=== PATIENT | female | born 2000 | race Asian ===

== ENCOUNTER 2023-10-11 16:57 | Inpatient (IN) ==
[2023-10-11 17:54] LABS: ABS Eosinophils 0.2 10^3/uL (0.0-0.5); ABS Lymphocytes 2.4 10^3/uL (1.0-4.8); ABS Monocytes 0.6 10^3/uL (0.0-0.9); ABS Neutrophils 4.2 10^3/uL (1.5-7.6); ABS Nucleated RBC 0.01 10^3/ul; Eosinophil % 2.2 %; Hematocrit 43.8 % (35-45); Hemoglobin 14.7 g/dL (11.5-14.3); Lymphocyte % 32.4 %; Mean Corpuscular Hemoglobin 29.4 pg (27-33); Mean Corpuscular Hgb Conc 33.5 g/dL (31-36); Mean Corpuscular Volume 87.8 fL (80-97); Mean Platelet Volume 8.7 fL (7.5-11.2); Nucleated Red Blood Cells % 0.1 %/100WBC (0.0-0.8); Platelet Count 309 10^3/uL (150-450); Red Blood Count 4.99 10^6/uL (3.63-4.92); Red Cell Distribution Width 13.7 % (12-17); White Blood Count 7.4 10^3/uL (3.8-11.8)
[2023-10-11 18:34] LABS: Urine Appearance Clear; Urine Bilirubin Negative (Negative); Urine Blood Negative (Negative); Urine Color Colorless; Urine Glucose Negative (Negative); Urine Ketones Negative (Negative); Urine Nitrite Negative (Negative); Urine Protein Negative (Negative); Urine Specific Gravity 1.009 (1.002-1.030); Urine Urobilinogen Negative (Negative)
[2023-10-11 18:53] LABS: HCG Pregnancy < 0.60 mIU/mL
[2023-10-11 18:57] LABS: ALT 17 U/L (7-52); AST 21 U/L (13-39); Albumin 4.5 g/dL (3.2-5.2); Albumin/Globulin Ratio 1.3 (1-3); Alkaline Phosphatase 62 U/L (35-149); Anion Gap 9 mmol/L (2-16); Blood Urea Nitrogen 9 mg/dL (6-24); C Reactive Protein 1.84 mg/L (<8.01); CO2 Carbon Dioxide 23 mmol/L (22-32); Calcium 9.3 mg/dL (8.6-10.3); Chloride 105 mmol/L (101-111); Globulin 3.4 g/dL (2-4); Glucose 103 mg/dL (70-100); Potassium 4.6 mmol/L (3.5-5.0); Sodium 137 mmol/L (135-145); Total Bilirubin 0.3 mg/dL (0.2-1.0); Total Protein 7.9 g/dL (6.4-8.9); eGFR CKD-EPI 124.6 (>60)
[2023-10-11 19:02] LABS: Erythrocyte Sed Rate 3 mm/Hr (0-19)
[2023-10-11] MEDS: Lactated Ringers 1000 ml BAG 1,000 ML IV ONE (20:41)
[2023-10-11] MEDS: Metoclopramide 5 MG/ML VIAL (10 mg) IV SLOW PU ONE (20:42)
[2023-10-12 04:41] LABS: Hematocrit 39.9 % (35-45); Hemoglobin 13.3 g/dL (11.5-14.3); Mean Corpuscular Hemoglobin 29.2 pg (27-33); Mean Corpuscular Hgb Conc 33.3 g/dL (31-36); Mean Corpuscular Volume 87.8 fL (80-97); Mean Platelet Volume 8.7 fL (7.5-11.2); Platelet Count 281 10^3/uL (150-450); Red Blood Count 4.55 10^6/uL (3.63-4.92); Red Cell Distribution Width 13.6 % (12-17); White Blood Count 10.9 10^3/uL (3.8-11.8)
[2023-10-12 05:15] LABS: Calcium 8.7 mg/dL (8.6-10.3); Creatinine, Serum 0.75 mg/dL (0.51-0.95); Magnesium 1.9 mg/dL (1.9-2.7); Potassium 4.1 mmol/L (3.5-5.0); eGFR CKD-EPI 114.7 (>60)
[2023-10-12] MEDS: Iohexol 350 (CONTRAST) 500 ML MDV IV ONE (06:04)
[2023-10-12 09:46] VITALS: BP 123/86
[2023-10-14 15:49] LABS: Anaplasma phagocytophilum Negative (Negative); B. miyamotoi PCR, B Negative (Negative); Babesia divergens/MO-1 Negative (Negative); Babesia ducani Negative (Negative); Ehrlichia chaffeensis Negative (Negative); Ehrlichia ewingii/canis Negative (Negative); Ehrlichia muris eauclairensis Negative (Negative)
== END 2023-10-12 18:55 | disposition left against medical advice (07) | DRG 54 ==
LOC: ED 16:57 → EDHOLD 22:11
PROVIDERS: ADMIT Internal Medicine; ATTEND Hospitalist